=== PATIENT | male | born 1995 | race African-American/Black ===

== ENCOUNTER 2023-10-30 05:27 | Emergency (ER) | payer OTHER ==
[~2023-10-30] VITALS: Ht 193 cm; Wt 95.3 kg
[2023-10-30 05:30] VITALS: BP 142/92; PULSE 87; RESP 18; TEMP 97.1; O2SAT 100
[2023-10-30] MEDS: LORazepam 1 MG TAB PO ONE (05:50)
[2023-10-30] MEDS ORDERED: ASPIRIN 81 MG TAB.CHEW ONE (06:01)
[2023-10-30] MEDS ORDERED: MORPHINE SULFATE 4 MG/ML SYR ONE (06:01)
[2023-10-30 06:14] LABS: EOSINOPHILS # (AUTO) 0.2 K/uL (0-0.4); EOSINOPHILS % (AUTO) 4.2 % (0.0-4.0); HEMATOCRIT 47.5 % (36-52); HEMOGLOBIN 16.4 g/dL (12.0-18.0); LYMPHOCYTES # (AUTO) 1.8 K/uL (2.0-11.5); LYMPHOCYTES % (AUTO) 39.2 % (20.5-51.1); MEAN CORPUSCULAR HEMOGLOBIN 31 pg (27-31); MEAN CORPUSCULAR HGB CONC 35 g/dL (33-37); MEAN CORPUSCULAR VOLUME 90.3 fL (80-94); MONOCYTES # (AUTO) 0.5 K/uL (0.8-1.0); MONOCYTES % (AUTO) 11.2 % (1.7-9.3); NEUTROPHILS # (AUTO) 2.1 K/uL (1.8-7.7); NEUTROPHILS % (AUTO) 44.4 % (42.2-75.2); PLATELET COUNT (AUTO) 246 K/uL (140-450); RED BLOOD CELL COUNT(AUTO) 5.26 MIL/uL (4.20-6.10); RED CELL DISTRIBUTION WIDTH 14.1 % (11.6-13.7); WHITE BLOOD COUNT (AUTO) 4.7 K/uL (4.8-10.8)
[2023-10-30] MEDS: MORPHINE SULFATE 4 MG/ML SYR IVP ONE ×2 (06:18→06:19)
[2023-10-30] MEDS: ASPIRIN 81 MG TAB.CHEW PO ONE ×2 (06:19→06:20)
[2023-10-30] MEDS: NITROGLYCERIN 0.4 MG TAB SL ONE ×2 (06:20)
[2023-10-30] MEDS: LORazepam 2 MG/ML VIAL IVP ONE (06:34)
[2023-10-30 07:14] LABS: CALCIUM 10.1 mg/dL (8.5-10.1); CREATININE 1.3 mg/dL (0.6-1.3)
[2023-10-30 07:25] VITALS: TEMP 97.9
[2023-10-30] MEDS: POTASSIUM CHLORIDE 10 MEQ TABER PO ONE (07:59)
[2023-10-30 09:03] VITALS: BP 148/81; PULSE 71; RESP 16; O2SAT 99
[2023-10-30 14:09] LABS: AMPHETAMINE, URINE POSITIVE ng/ml (NEG <=1000); BARBITURATE, URINE NEGATIVE ng/ml (NEG <=200); BENZODIAZEPINE, URINE NEGATIVE ng/mL (NEG <=200); CANNABINOID, URINE NEGATIVE ng/mL (NEG <=50); COCAINE, URINE POSITIVE ng/mL (NEG <=300); OPIATE, URINE NEGATIVE ng/mL (NEG <=2000); PHENCYCLIDINE SCREEN,URINE NEGATIVE ng/mL (NEG <=25)
== END 2023-10-30 10:30 | disposition home or self-care (01) ==
LOC: MED 05:27
DX: R07.9 Chest pain, unspecified (principal); R06.02 Shortness of breath; E87.6 Hypokalemia; F17.210 Nicotine dependence, cigarettes, uncomplicated; Z79.899 Other long term (current) drug therapy
CPT/HCPCS: 36415; 71045; 71275; 74174; 80048; 80305; 84484; 85025; 93005; 96374; 96375; 99285; J2060; J2270; Q0092; Q9967